=== PATIENT | female | born 1955 | race Caucasian/White ===

== ENCOUNTER 2016-08-14 09:45 | Emergency (ER) | payer BC ==
[~2016-08-14] VITALS: Ht 177.8 cm; Wt 74.5 kg
[~2016-08-14 09:45] MED LIST: ASPIRIN 81M81 MG/TA2 PO; BUMEX2 MG PO; COREG 25MG25 MG/TAB PO; FIORICET 325 MG1 TA1 PO; K-TAB20; LEVOXYL0.05 MG PO; LIPITOR 40MG TA40 MG PO; PERCOCET 325 MG1 TA2 PO; PHENERGAN 25 TA25 MG PO; PRIL40 PO; RT ADVAIR 528 DISKUS IH; RT SPIRIVA18 MCG IH; SYNTHROID 0.0.025 MG PO; TIROSINT88 MCG PO; VISTARIL 2525 MG/CAP PO; ZOFRAN 4MG T4 MG/TAB PO
[2016-08-14 10:01] VITALS: TEMP 98.2
[2016-08-14 11:21] LABS: BASO % 0.4 % (0.0-2.0); EOS # 0.7 (0.0-0.7); EOS % 8.7 % (0-4.0); GRAN # 5.3 (1.4-6.5); GRAN % 63.4 % (42.2-75.2); HEMATOCRIT 43.9 % (37.0-47.0); HEMOGLOBIN 14.7 g/dl (12.5-16.0); LYMPH # 1.7 (1.2-3.4); LYMPH % 19.8 % (20.0-51.0); MEAN CELL VOLUME 88 fl (80.0-100.0); MEAN CORPUSCULAR HEMOGLOBIN 29 pg (27.0-31.0); MEAN CORPUSCULAR HGB CONC 34 g/dl (33.0-37.0); MONO # 0.6 (0.1-0.6); MONO % 7.3 % (1.7-9.3); PLATELET COUNT 222 K/mm3 (130-400); REDCELL DISTRIBUTION WIDTH-CV 14.3 % (11.5-14.5); WHITE BLOOD COUNT 8.4 K/mm3 (4.8-10.8)
[2016-08-14 11:31] LABS: ADJUSTED CALCIUM 9.1 mg/dL (8.4-10.2); ALBUMIN 4.3 gm/dL (3.5-5.0); BILIRUBIN,TOTAL 1.4 mg/dL (0.0-1.0); C-REACTIVE PROTEIN 2.6 mg/dL (0.0-0.9); CALCIUM 9.3 mg/dL (8.4-10.2); CREATININE, serum 1.07 mg/dL (0.52-1.25); POTASSIUM 3.7 mmol/L (3.4-5.0); TOTAL PROTEIN 7.8 gm/dL (6.4-8.2)
[2016-08-14 12:31] VITALS: BP 135/90; PULSE 80
== END 2016-08-14 12:35 | disposition home or self-care (01) ==
LOC: COL.ER 09:45
PROVIDERS: Family Medicine
DX: L50.9 Urticaria, unspecified (principal); R51 Headache; R11.2 Nausea with vomiting, unspecified; I50.9 Heart failure, unspecified; E03.9 Hypothyroidism, unspecified
CPT/HCPCS: J1040; J2405; J7030

== ENCOUNTER 2019-08-04 21:56 | Emergency (ER) | payer MEDICARE, OTHER ==
[~2019-08-04] VITALS: Ht 177.8 cm; Wt 61.8 kg
[2019-08-04 22:03] VITALS: BP 142/65; TEMP 97.8
[2019-08-04 23:00] LABS: BASO # 0.1 (0.0-0.2); BASO % 0.6 % (0.0-2.0); EOS # 1.1 (0.0-0.7); GRAN # 8.2 (1.4-6.5); GRAN % 68.2 % (42.2-75.2); LYMPH # 1.9 (1.2-3.4); LYMPH % 15.5 % (20.0-51.0); MEAN CELL VOLUME 86 fl (80.0-100.0); MEAN CORPUSCULAR HEMOGLOBIN 28 pg (27.0-31.0); MEAN CORPUSCULAR HGB CONC 32 g/dl (33.0-37.0); MEAN PLATELET VOLUME 9.4 fl (7.4-10.4); MONO # 0.8 (0.1-0.6); MONO % 6.4 % (1.7-9.3); PLATELET COUNT 308 K/mm3 (130-400); RED BLOOD COUNT 4.28 M/mm3 (4.10-5.30); REDCELL DISTRIBUTION WIDTH-CV 13.2 % (11.5-14.5)
[2019-08-04 23:11] LABS: ALANINE AMINOTRANSFERASE 14 U/L (4-34); ALBUMIN 3.9 gm/dL (3.5-5.0); ALKALINE PHOSPHATASE 133 U/L (50-136); ANION GAP 8 mmol/L (7-16); AST,SGOT 23 U/L (15-37); BILIRUBIN,TOTAL 0.3 mg/dL (0.0-1.0); BLOOD UREA NITROGEN 25 mg/dL (7-17); CALCIUM 9.3 mg/dL (8.4-10.2); CARBON DIOXIDE 27 mmol/L (22-30); CHLORIDE 102 mmol/L (98-107); CREATININE, serum 1.07 (0.52-1.25); GLUCOSE 96 mg/dL (74-106); POTASSIUM 3.6 mmol/L (3.4-5.0); SODIUM 137 mmol/L (137-145); TOTAL PROTEIN 7.7 gm/dL (6.4-8.2)
[2019-08-04 23:25] LABS: TROPONIN-I < 0.012 ng/mL (0.000-0.035)
[2019-08-05] MEDS ORDERED: LEVAQUIN 750MG750 M1 PO (01:07)
[2019-08-05] MEDS ORDERED: PREDNISONE20 MG PO (01:07)
[2019-08-05 01:30] VITALS: PULSE 75
== END 2019-08-05 01:34 | disposition home or self-care (01) ==
LOC: COL.ER 21:56
PROVIDERS: Emergency Medicine
DX: J45.901 Unspecified asthma with (acute) exacerbation (principal); J18.9 Pneumonia, unspecified organism; R59.9 Enlarged lymph nodes, unspecified; I10 Essential (primary) hypertension; E03.9 Hypothyroidism, unspecified; Z79.82 Long term (current) use of aspirin; Z79.51 Long term (current) use of inhaled steroids; Z88.0 Allergy status to penicillin
CPT/HCPCS: J7512

== ENCOUNTER → 2019-08-18 | Outpatient (CLI) | payer MEDICARE, OTHER ==
[~2019-08-18] MED LIST changes: +LEVAQUIN 750MG750 M1 PO; +PREDNISONE20 MG PO
[2019-08-18 12:41] LABS: CALCIUM 8.8 mg/dL (8.4-10.2); CREATININE, serum 1.02 (0.52-1.25); POTASSIUM 3.5 mmol/L (3.4-5.0)
[2019-08-18 21:45] LABS: PROCALCITONIN 0.02 ng/mL (0.00-0.09)
[2019-08-18 22:03] LABS: IMMUNOGLOBULIN G 1068 mg/dL (552-1631)
[2019-08-18 22:04] LABS: IMMUNOGLOBULIN A 185 mg/dL (69-517); IMMUNOGLOBULIN M, QUANTITATIVE 51 mg/dL (33-293)
[2019-08-20 18:41] LABS: ANGIOTENSIN CONVERTING ENZYME 43 U/L (16 - 85)
[2019-08-21 05:13] LABS: TB GOLD INTERPRETATION Negative (Negative)
== END ==
LOC: COL.LAB 11:32 → COL.VAS 11:32
PROVIDERS: Internal Medicine Pulmonary Disease
DX: M47.812 Spondylosis without myelopathy or radiculopathy, cervical region (principal); R93.89 Abnormal findings on diagnostic imaging of other specified body structures; R91.8 Other nonspecific abnormal finding of lung field; R13.10 Dysphagia, unspecified

== ENCOUNTER 2019-09-09 07:06 | Day surgery (SDC) | payer MEDICARE, OTHER ==
[~2019-09-09] VITALS: Ht 170.2 cm; Wt 60.6 kg
[2019-09-09 07:40] VITALS: BP 131/52; PULSE 59; TEMP 97.8
[2019-09-09] MEDS ORDERED: COREG 6.256.25 MG/TA PO (07:56)
[2019-09-09] MEDS ORDERED: LEVOXYL0.05 MG PO (07:58)
[2019-09-09] MEDS ORDERED: ARICEPT 5MG PO (07:58)
[2019-09-09] MEDS ORDERED: SPORANOX100 MG PO (07:59)
--- NOTE | 2019-09-09 08:03 | NUR ---
TO RM AT 0710- CALL LIGHT IN REACH SON AT BEDSIDE.
[2019-09-09 09:30] VITALS: BP 117/49; PULSE 63; TEMP 97.7
--- NOTE | 2019-09-09 09:30 | NUR ---
TO RM 6 PER CART FROM ENDOSCOPY. UPON RETURNING TO RESPITORY GIVING PATIENT A BREATHING TX. 02 SAT 94% ON 4L. COUGHING COPIOUS AMOUNTS OF SPUTUM. PATIENT STATED SHE CAN BREATH SO MUCH EASIER NOW.
[2019-09-09 09:45] VITALS: BP 119/48; PULSE 59
--- NOTE | 2019-09-09 09:45 | NUR ---
RECEIVED WATER AND TAKING SIPS. DR MORAN TALKED WITH PATIENTS SON PRIOR TO PATIENT RETURNING TO .
[2019-09-09 10:00] VITALS: BP 133/53; PULSE 65
--- NOTE | 2019-09-09 10:00 | NUR ---
RECEIVED JELLO LESS COUGHING AND AGAIN STATED HOW MUCH BETTER SHE FELT.
[2019-09-09 10:15] VITALS: BP 139/56; PULSE 65
--- NOTE | 2019-09-09 10:15 | NUR ---
ATE 100% AND TOLERATED WELL RESPIRATIOINS EVEN AND NONLABORED. STATED SHE WANTED TO GO HOME. RECEIVED COKE PER PATIENT REQUEST
--- NOTE | 2019-09-09 10:25 | NUR ---
RECEIVED DISCHARGE INSTRUCTIONS AND VERBALIZED UNDERSTANDING. DISCONTINUED IV AND INT- CATHETER INTACT. PATIENT GETTING DRESSED.
--- NOTE | 2019-09-09 10:35 | NUR ---
DISCHARGED PER BY NURSING STAFF TO PRIVATE CAR IN CARE OF SON - CAM. PATIENT DRINKING HER COKE ON THE WAY OUT.
== END 2019-09-09 10:45 | disposition home or self-care (01) ==
LOC: SDCO 07:06
DX: J47.9 Bronchiectasis, uncomplicated (principal); I13.0 Hypertensive heart and chronic kidney disease with heart failure and stage 1 through stage 4 chronic kidney disease, or unspecified chronic kidney disease; I50.9 Heart failure, unspecified; E78.5 Hyperlipidemia, unspecified; J45.909 Unspecified asthma, uncomplicated; E03.9 Hypothyroidism, unspecified; N18.9 Chronic kidney disease, unspecified; Z57.31 Occupational exposure to environmental tobacco smoke; Z79.82 Long term (current) use of aspirin; Z88.0 Allergy status to penicillin; Z91.018 Allergy to other foods; Z88.8 Allergy status to other drugs, medicaments and biological substances; Z79.899 Other long term (current) drug therapy; M19.90 Unspecified osteoarthritis, unspecified site
CPT/HCPCS: J2704; J7120